=== PATIENT | female | born 1980 | race Caucasian/White ===

== ENCOUNTER 2017-05-06 04:55 | Emergency (ER) | payer BC ==
[2017-05-06 05:15] LABS: BASOPHIL# 0.1 X 10^3uL (0.0-0.1); HEMOGLOBIN 11.7 g/dL (12.0-16.0); MONOCYTES# 0.4 X 10^3uL (0.2-1.0)
[2017-05-06 05:18] LABS: BASOPHILS 1.5 % (0.0-2.0); EOSINOPHILS 0.5 % (0.0-6.0); LYMPHOCYTES 11.4 % (20.0-40.0); MEAN CELL VOLUME 79.9 fL (80.0-100.0); MEAN CORPUS. HGB CONCENTRATION 33.3 g/dL (32.0-36.0); MEAN CORPUSCULAR HEMOGLOBIN 26.6 pg (29.0-35.0); MONOCYTES 4.3 % (2.0-10.0); NEUTROPHILS 82.3 % (54.0-75.0); NEUTROPHILS# 7.7 X 10^3uL (2.6-6.7); PLATELET COUNT 292 X 10^3uL (130-440); RED BLOOD COUNT 4.39 X 10^6uL (4.20-6.10); WHITE BLOOD COUNT 9.2 X 10^3uL (3.9-10.7)
[2017-05-06 05:22] LABS: ALBUMIN 4.4 g/dL (3.5-5.0); ALKALINE PHOSPHATASE 77 U/L (38-126); ALT 38 U/L (9-52); AST 30 U/L (14-36); BILIRUBIN, DIRECT 0.1 mg/dL (0.0-0.4); BILIRUBIN, TOTAL 0.6 mg/dL (0.2-1.3); BLOOD UREA NITROGEN 9 mg/dL (7-17); CHLORIDE 105 mmol/L (98-107); EST GLOMERULAR FILTRATION RATE > 60 mL/min; LIPASE 36 U/L (23-300); POTASSIUM 3.1 mmol/L (3.5-5.1); SODIUM 136 mmol/L (137-145); TOTAL PROTEIN 7.6 g/dL (6.3-8.2)
[2017-05-06] MEDS ORDERED: ONDANSETRON HCL 4 MG/2 ML VIAL ONE ×2 (05:22→11:25)
[2017-05-06 05:23] LABS: GLUCOSE 208 mg/dL (70-100)
[2017-05-06 05:35] LABS: CALCIUM 9.9 mg/dL (8.4-10.2)
[2017-05-06] MEDS ORDERED: METOCLOPRAMIDE HCL 10 MG/2 ML VIAL ONE (05:43)
[2017-05-06 06:35] LABS: URINE MUCUS NONE SEEN (Up to 25%); URINE SQUAMOUS EPITHELIAL CELL NONE SEEN (<= 15/hpf); URINE WBC NONE SEEN (0-4/hpf)
[2017-05-06 06:42] LABS: URINE APPEARANCE CLEAR; URINE BACTERIA NONE SEEN (<10/hpf); URINE BILIRUBIN NEGATIVE (NEGATIVE); URINE BLOOD 50 Ery/uL (2+) (NEGATIVE); URINE COLOR YELLOW; URINE GLUCOSE 100mg/dL (NEGATIVE); URINE KETONE 100mg/dL (3+) (NEGATIVE); URINE LEUKOCYTE ESTERASE NEGATIVE (NEGATIVE); URINE NITRITE NEGATIVE (NEGATIVE); URINE PROTEIN NEGATIVE (NEG - TRACE); URINE RBC 0-5/hpf (0-5/hpf); URINE SPECIFIC GRAVITY 1.015 (0.001-1.035); URINE UROBILINOGEN 0.2mg/dL (Normal) (NEG-1mg/dL)
--- NOTE | 2017-05-06 06:54 | CT REPORT ---
EXAMINATION: CT OF THE ABDOMEN AND PELVIS WITH IV CONTRAST INDICATION: Upper abdominal pain, history of gastric bypass. [facility] [place]. TECHNIQUE: Transaxial images of the abdomen and pelvis were obtained from the diaphragmatic dome to t he ischial tuberosity according to routine abdomen and pelvis protocol, following the administration of intravenous contrast material, Isovue 300, 100 ml. This examination was performed using automate d exposure control, adjustment of mA or kV according to patient size, and/or use of iterative reconst ruction technique. COMPARISON: None FINDINGS: Liver: The liver appears normal in size, shape, and attenuation without evidence of worrisome lesions on this exam. Patent portal veins. Bile ducts: No intra- or extra-hepatic dilation. Gallbladder: No gallstones or wall thickening. Pancreas: Normal. Spleen: No splenomegaly. Adrenals: Normal adrenal glands. Kidneys/Urinary Bladder: Kidneys appear normal without hydronephrosis or obstructive nephrolithiasis. Urinary bladder is thin walled and distended. Reproductive organs: Uterus and adnexa appear normal. GI tract/Mesentery: Appendix not identified. No pericecal inflammation. No obstruction. Some air-fill ed nondilated small bowel in the left abdomen is nonspecific but may reflect enteritis or ileus. 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 There is a small segment of mesentery in the lower mid abdomen with some mesenteric stranding above w hich there is some swirling of mesenteric vessels axial images 39 -56/92. Vascular: Aorta and IVC appear normal. Peritoneum/retroperitoneum: No free fluid or free air. Lymph Nodes: No significant lymphadenopathy in the abdomen or pelvis. Bones: Bones appear normal without evidence of acute fractures. Superficial Soft Tissue: Normal. Lower chest: The demonstrated lung bases are clear. IMPRESSION: 1. Some air-filled nondilated small bowel in the left abdomen is nonspecific but may reflect enterit is or ileus. 2. Small segment of mesentery in the lower mid abdomen with some mesenteric stranding above which th ere is some swirling of mesenteric vessels. Although this finding is nonspecific, this may reflect a small segment of twisted or herniated mesentery. No evidence of bowel obstruction or acute vascular occlusion to warrant emergent intervention. 3. Changes of Vinicius-en-Y gastric bypass. COMMUNICATION: Dr. Chloé Alcantara discussed the pertinent results with Dr. Muller at 05/06/2017 6:52 AM. Final Electronic Signature: This report was electronically signed by Calvin Alcantara MD on 6:52 AM. myriam /
[2017-05-06 07:33] LABS: BASOPHILS 0.1 % (0.0-2.0); EOSINOPHILS 0.3 % (0.0-6.0); HEMATOCRIT 29.5 % (36.0-48.0); HEMOGLOBIN 9.8 g/dL (12.0-16.0); LYMPHOCYTES 8.7 % (20.0-40.0); LYMPHOCYTES# 0.6 X 10^3uL (0.8-3.8); MEAN CELL VOLUME 79.6 fL (80.0-100.0); MEAN CORPUS. HGB CONCENTRATION 33.3 g/dL (32.0-36.0); MEAN CORPUSCULAR HEMOGLOBIN 26.5 pg (29.0-35.0); MEAN PLATELET VOLUME 9.4 fL (7.4-10.4); MONOCYTES 1.6 % (2.0-10.0); MONOCYTES# 0.1 X 10^3uL (0.2-1.0); NEUTROPHILS 89.3 % (54.0-75.0); NEUTROPHILS# 6.3 X 10^3uL (2.6-6.7); RED BLOOD COUNT 3.7 X 10^6uL (4.20-6.10)
[2017-05-06 07:37] LABS: CALCIUM 8.1 mg/dL (8.4-10.2); POTASSIUM 3.2 mmol/L (3.5-5.1)
[2017-05-06 07:38] LABS: RED CELL DISTRIBUTION WIDTH 18.1 % (11.5-14.5)
--- NOTE | 2017-05-06 08:11 | ER NURSING DOCUMENTATION ---
Nurse's Notes [facility] Name:Santa Minaya Age:37 yrs Sex:Female :1980 Arrival Date:05/06/2017 Time:04:55 Bed4 Private MD:Physician, No Diagnosis:Abdominal Pain, Epigastric Presentation: 05/06 04:56 Presenting complaint: Patient states: abdominal pain with vomiting. Transition of care: bw2 patient was not received from another setting of care. 04:56 Acuity: SMILEY 3 bw2 04:56 Method Of Arrival: Walk In 2 Triage Assessment: 04:56 General: Appears uncomfortable, Behavior is anxious, crying, restless. Pain: Complains bw2 of pain in abdominal. GI: Reports nausea, Denies diarrhea. 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 - Ebola Screening: : Patient negative for fever greater than or equal to 101.5 degrees Fahrenheit, and additional compatible Ebola Virus Disease symptoms. Patient denies exposure to infectious person. Patient denies travel to an Ebola-affected area in the 21 days before illness onset. No symptoms or risks identified at this time. . - Immunization history: Flu Vaccine None. - Social history: Smoking status: Patient uses tobacco products, heavy tobacco smoker. Screenin:00 Infectious Disease Risk None. Abuse screen: Denies threats or abuse. Nutritional bw2 screening: No deficits noted. Assessment: 05:00 See Triage Assessment done by same RN. bw2 05:19 GI: Bowel sounds present X 4 quads. Abdomen is tender to palpation X 4 quads. Denies bw2 diarrhea. 07:49 General: pt got drowsy with last dose of Dilaudid. pt wakes up with talking to her and st then can bring her saturations up. . Vital Signs: 04:58 BP 123 / 70; Pulse 84; Resp 24; Temp 97.8; Pulse Ox 100% on R/A; Weight 81.65 kg; bw2 Height 5 ft. 7 in. (170.18 cm); Pain 10/10; 07:45 BP 120 / 87; Pulse 69; Pulse Ox 96% on R/A; Pain 7/10; st 04:58 Body Mass Index 28.19 (81.65 kg, 170.18 cm) bw2 ED Course: 04:55 Patient arrived in ED. em2 04:55 Physician, No is Private Physician. em2 04:56 Farida Bell is Primary Nurse. bw2 04:56 Triage completed. bw2 04:56 Clark Muller MD is Attending Physician. tl1 05:00 Valuables Remains with patient Patient has correct armband on for positive bw2 identification. Bed in low position. Side rails up X2. 05:19 Inserted peripheral IV: 18 gauge in left antecubital area and blood collected. bw2 05:[address] dnn 06:01 Pulse ox on. bw2 06:04 Diet: pt strongly encouraged to drink contrast. pt stated that she was unable to due to bw2 pain. MD notified and pt medicated again. pt still stated that she was unable to drink contrast . 06:21 Patient moved back from CT. dnn 07:25 Labs drawn. By Lab Staff. st 07:50 Oxygen Oxygen administration via nasal cannula @ 2L/min. st Administered Medications: 05:18 Drug: Zofran 4 mg; Route: IVP; Infused Over: 2 mins; Site: left antecubital; bw2 05:38 Follow up: Response: No adverse reaction bw2 05:18 Drug: Dilaudid 1 mg; Route: IVP; Site: left antecubital; bw2 05:36 Drug: Reglan 10 mg; Route: IVP; Site: left antecubital; mv 05:59 Follow up: Response: No adverse reaction bw2 05:45 Drug: Dilaudid 1 mg; Route: IVP; Site: right antecubital; bw2 05:59 Follow up: Response: Pain is unchanged, physician notified bw2 05:59 Drug: Dilaudid 1 mg; Route: IVP; Site: left antecubital; bw2 06:00 Follow up: Response: No adverse reaction bw2 07:44 Drug: Dilaudid 1 mg; Route: IVP; Site: left antecubital; st 07:55 Follow up: Response: Pain is decreased st Point of Care Testing: Urine Dip: 06:31 pH: 7.0; ; Specific [place]: 1.015; Ketones: 4 mg/dL; Glucose: Positive; Protein: bw2 Negative; Leukocytes: Negative; Nitrite: Negative ; Blood: Large (+++); Bilirubin: Negative ; Urobilinogen: Normal Outcome: 07:54 ER care complete, transfer ordered by tl1 08:08 Transferred: Patient will be transferred to: [facility]. Facility st Acceptance Time: May 06, 2017 at 08:09 Patient's face sheet was faxed to accepting facility. Face Sheet included patient's name, address, age, gender, contact information and insurance information. Patient will be transported by: [facility] ground. Nurse and Physician Charting and Notes were sent to Accepting Facility. All tests and/or procedures with results, if applicable, were sent to accepting facility. 08:08 Report given to Lauren CARMEN on the surgical floor at [facility] 08:[address] st Signatures: Marlyn Ledbetter, RN RN Vladislav Francen Lorrie-reg, Chelo-adalid em2 Clark Muller MD MD tl1 jeff shafer, [facility]2
--- NOTE | 2017-05-06 08:11 | ER PHYSICIAN DOCUMENTATION ---
Physician Documentation [facility] Name:Santa Minaya Age:37 yrs Sex:Female :1980 Arrival Date:05/06/2017 Time:04:55 Bed4 Private MD:Physician, No ED Clark Chiang Disposition: 05/06 07:55 Chart complete. tl1 Disposition: 05/06/17 07:54 Transfer ordered to [facility]. Diagnosis is Abdominal Pain, Epigastric. - Reason for transfer: Higher level of care. - Accepting physician is Gualberto Wall. - Condition is Fair. - Problem is new. - Symptoms are unchanged. COBRA Form completed? Yes Transfer - Mode of Transportation Ambulance HPI: 05:00 This 37 yrs old Female presents to ER via Walk In with complaints of tl1 Abdominal Pain. 05:00 The patient presents with abdominal pain in the upper abdomen. Onset: The tl1 symptoms/episode began/occurred suddenly, 5 hour(s) ago. The symptoms radiate to back. The symptoms are described as crampy, sharp. Modifying factors: The symptoms are alleviated by nothing, the symptoms are aggravated by nothing. Severity of pain: At its worst the pain was severe in the emergency department the pain is unchanged. The patient has experienced similar episodes in the past. She had a gastric bypass in 2001. Beginning about a year ago she began developing episodic severe abdominal pain on an irregular basis. She said she had this kind of pain almost daily for a couple months. She says she has had a significant workup on multiple occasions,all of them unrevealing.. 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 - Ebola Screening: : Patient negative for fever greater than or equal to 101.5 degrees Fahrenheit, and additional compatible Ebola Virus Disease symptoms. Patient denies exposure to infectious person. Patient denies travel to an Ebola-affected area in the 21 days before illness onset. No symptoms or risks identified at this time. . - Immunization history: Flu Vaccine None. - Social history: Smoking status: Patient uses tobacco products, heavy tobacco smoker. ROS: 05:16 Abdomen/GI: Positive for abdominal pain, nausea, vomiting, abdominal cramps, anorexia, tl1 Negative for diarrhea, constipation, hematemesis, black/tarry stool, rectal bleeding, bowel incontinence. 05:16 All other systems are negative. Exam: 05:17 Head/Face: Normocephalic, atraumatic. tl1 05:17 Eyes: Pupils equal round and reactive to light, extra-ocular motions intact. Lids and tl1 lashes normal. Conjunctiva and sclera are non-icteric and not injected. Cornea within normal limits. Periorbital areas with no swelling, redness, or edema. 05:17 Constitutional: The patient appears alert, awake, well developed, well groomed, well nourished, obese, in obvious distress, moderately distressed, in obvious pain, restless, uncomfortable. 05:17 Neck: External neck: is normal, ROM/movement: is normal, is supple. 05:17 Cardiovascular: Rate: normal, Rhythm: regular. 05:17 Respiratory: Respirations: normal, Breath sounds: are normal, no decreased breath sounds, no rales, rhonchi, no stridor, no wheezing. 05:17 Abdomen/GI: Inspection: abdomen appears normal, Palpation: soft, moderate abdominal tenderness, in the right upper quadrant, left upper quadrant, right lower quadrant and left lower quadrant. 05:17 Back: CVA tenderness, is absent. 05:17 Musculoskeletal/extremity: Exam is negative for acute changes. 05:17 Skin: Exam negative for acute changes. 05:17 Neuro: Exam negative for acute changes. Vital Signs: 04:58 BP 123 / 70; Pulse 84; Resp 24; Temp 97.8; Pulse Ox 100% on R/A; Weight 81.65 kg; bw2 Height 5 ft. 7 in. (170.18 cm); Pain 10/10; 07:45 BP 120 / 87; Pulse 69; Pulse Ox 96% on R/A; Pain 7/10; st 04:58 Body Mass Index 28.19 (81.65 kg, 170.18 cm) bw2 MDM: 04:56 Patient medically screened. tl1 07:40 Data reviewed: vital signs, nurses notes, lab test result(s), CBC, electrolytes, tl1 hepatic panel, urinalysis, radiologic studies, CT scan, and as a result, I will *Transfer Patient. Counseling: I had a detailed discussion with the patient and/or guardian regarding: the historical points, exam findings, and any diagnostic results supporting the discharge/admit diagnosis, lab results, radiology results, the need to transfer to another facility, for higher level of care, [facility] does not immediately have the required specialist. Medication response: The patient's symptoms have improved, Dilaudid. Response to treatment: the patient's symptoms have mildly improved after treatment. Response to treatment: and as a result, I will admit patient. Physician consultation: Gualberto Wall MD was called at 07:30, was contacted at 07:35, regarding patient's condition, and will see patient At [facility]. after a discussion of the case, a recommendation for transfer for higher level of care is made. ED course: PAIN only marginally controlled with Dilaudid. She was otherwise hemodynamically stable. Care discussed with Dr Wall who kindly accepted the patient in transfer for further evaluation and care.. 05/06 05:23 Order name: BASIC METABOLIC PANEL; Complete Time: 06:25 EDMS 05/06 06:22 Interpretation: SODIUM 136; POTASSIUM 3.1; CHLORIDE 105; CARBON DIOXIDE 15; GLUCOSE tl1 208; BLOOD UREA NITROGEN 9; CREATININE 0.7; EST GLOMERULAR FILTRATION RATE > 60; CALCIUM 9.9. 05/06 05:23 Order name: HEPATIC PANEL; Complete Time: 06:25 EDMS 05/06 06:23 Interpretation: Normal: ALT 38; ALBUMIN 4.4; ALKALINE PHOSPHATASE 77; AST 30; tl1 BILIRUBIN, TOTAL 0.6; BILIRUBIN, DIRECT 0.1; TOTAL PROTEIN 7.6. 05/06 05:23 Order name: LIPASE; Complete Time: 06:25 EDMS 05/06 06:23 Interpretation: Normal: LIPASE 36. tl1 05/06 05:27 Order name: HCG, SERUM; Complete Time: 06:25 EDMS 05/06 06:23 Interpretation: HCG, SERUM NEGATIVE. tl1 05/06 05:28 Order name: CBC AUTO DIF, MDIF/RMOR IF IND; Complete Time: 06:25 EDMS 05/06 06:24 Interpretation: WHITE BLOOD COUNT 9.2; HEMOGLOBIN 11.7; HEMATOCRIT 35.0; PLATELET COUNT tl1 292; NEUTROPHILS 82.3. 05/06 06:43 Order name: UA W/ MICRO -CULTURE IF IND; Complete Time: 16:20 EDMS 05/06 07:37 Order name: LACTATE; Complete Time: 16:20 EDMS 05/06 07:38 Order name: CBC-AUTO DIF, MDIF/RMOR IF IND; Complete Time: 16:20 EDMS 05/06 07:38 Order name: BASIC METABOLIC PANEL; Complete Time: 16:20 EDMS 05/06 06:56 Order name: CAT SCAN; ABD/PEL W [id number]; Complete Time: 16:20 EDMS 05/06 05:03 Order name: NPO; Complete Time: 05:19 tl1 05/06 07:50 Order name: Oxygen; Complete Time: 07:50 st Dispensed Medications: 05:18 Drug: Zofran 4 mg; Route: IVP; Infused Over: 2 mins; Site: left antecubital; bw2 05:38 Follow up: Response: No adverse reaction bw2 05:18 Drug: Dilaudid 1 mg; Route: IVP; Site: left antecubital; bw2 05:36 Drug: Reglan 10 mg; Route: IVP; Site: left antecubital; mv 05:59 Follow up: Response: No adverse reaction bw2 05:45 Drug: Dilaudid 1 mg; Route: IVP; Site: right antecubital; bw2 05:59 Follow up: Response: Pain is unchanged, physician notified bw2 05:59 Drug: Dilaudid 1 mg; Route: IVP; Site: left antecubital; bw2 06:00 Follow up: Response: No adverse reaction bw2 07:44 Drug: Dilaudid 1 mg; Route: IVP; Site: left antecubital; st 07:55 Follow up: Response: Pain is decreased st Point of Care Testing: Urine Dip: 06:31 pH: 7.0; ; Specific [place]: 1.015; Ketones: 4 mg/dL; Glucose: Positive; Protein: bw2 Negative; Leukocytes: Negative; Nitrite: Negative ; Blood: Large (+++); Bilirubin: Negative ; Urobilinogen: Normal Signatures: Marlyn Ledbetter, Clark Romero RN, MD MD tl1 jeff shafer Beth bw2
[2017-05-06] MEDS ORDERED: FENTANYL 100 MCG/2 ML VIAL ONE ×2 (11:24)
== END 2017-05-06 08:11 | disposition short-term general hospital (02) ==
LOC: ER 04:55
DX: R10.84 Generalized abdominal pain (principal); R11.2 Nausea with vomiting, unspecified; E66.9 Obesity, unspecified; Z98.84 Bariatric surgery status; F17.210 Nicotine dependence, cigarettes, uncomplicated; Z74.3 Need for continuous supervision; Z99.81 Dependence on supplemental oxygen
CPT/HCPCS: 74177; 80048; 80076; 81001; 83605; 83690; 84703; 85025; 96374; 96375; 96376; 99285; A0425; A0427; J1170; J2405; J2765; J3010